=== PATIENT | male | born 1980 | race Caucasian/White ===

== ENCOUNTER 2023-01-27 23:04 | Emergency (ER) | payer MEDICAID ==
[~2023-01-27] VITALS: Ht 175.3 cm; Wt 79.4 kg
[2023-01-27 23:21] VITALS: BP_SYST 130
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
--- NOTE | 2023-01-27 23:55 | NUR ---
ER at bedside examining patient.
[2023-01-28] MEDS ORDERED: IBUP-1969 PO (00:08)
[2023-01-28] MEDS ORDERED: KETOROLAC TROMETHAMINE 30 MG VIAL IM ONE (00:15)
[2023-01-28] MEDS ORDERED: KETOROLAC TROMETHAMINE 30 MG VIAL ONE (00:17)
[2023-01-28 00:34] VITALS: BP_SYST 130
--- NOTE | 2023-01-28 00:38 | NUR ---
Patient given written and verbal discharge instructions and verbalizes understanding. ER MD discussed with patient the results and treatment provided. Patient in stable condition. ID arm band removed. Rx of IBUPROFEN given. Patient educated on pain management and to follow up with PMD. Pain Scale . Opportunity for questions provided and answered. Medication side effect fact sheet provided.
== END 2023-01-28 00:34 | disposition home or self-care (01) ==
LOC: SED 23:04
DX: M25.512 Pain in left shoulder (principal); Z79.899 Other long term (current) drug therapy
CPT/HCPCS: 99283; 73030; 96372; J1885